=== PATIENT | female | born 1945 | race Two or more races ===

== ENCOUNTER 2022-04-13 08:15 | Emergency (ER) | payer OTHER ==
[2022-04-13 08:44] VITALS: BP 208/83; PULSE 62; RESP 18; TEMP 98; BMI 25.4
== END 2022-04-13 10:05 | disposition home or self-care (01) ==
LOC: JER 08:15
DX: I10 Essential (primary) hypertension (principal)
CPT/HCPCS: 93005; 93010; 99283-25